=== PATIENT | male | born 1985 | race Caucasian/White ===

== ENCOUNTER 2023-09-16 15:54 | Emergency (ER) | payer OTHER, SELFPAY ==
[2023-09-16 16:12] VITALS: BP 159/90
[2023-09-16] MEDS: OCUFLOX 2 DROP OPHTH (17:38)
--- NOTE | 2023-09-16 20:50 | ED.GENMED ---
History of Present Illness
General
Chief Complaint: Eye Problems
Source: patient
Exam Limitations: none
Time Seen by Provider: 09/16/23 16:39
Nursing documentation reviewed up to this point in time: agreed with
Travel History
Have you had any contact with someone who has COVID-19?: No
Do you have any symptoms of coronavirus? Fever > 100 degrees, chills, cough, shortness of breath, sore throat, loss of taste or smell, muscle aches, or headache?: No
History of Present Illness
History of Present Illness:
Patient to ED for eval of swelling to right upper eyelid. Symptoms started 1 week ago and continues to worsen. Denies fever/chills. No historyo f trauma. Seen by PCP [employer]. Given rx for doxycycline and sent to ED for eval.
Past History
Past History
ED Past Medical History: None and Other (Previous alcohol use)
ED Past Surgical History: None
Social History
Tobacco: Non-smoker
Alcohol: Binge drinker
Family History
Family History: Other (Alzheimer's)
Review of Systems
Review of Systems
Allergies reviewed?: Yes
All Other Systems: ROS reviewed and negative except as documented in HPI and ROS
Constitutional: Reports no symptoms
EENT: Reports other (Large hordeolum right upper eyelid)
Musculoskeletal: Reports no symptoms
Skin: Reports other (swelling right upper eyelid)
Neurological: Reports no symptoms
Psychiatric: Reports no symptoms
Phy Exam
General Physical Exam
General Presentation: well appearing and no apparent distress
General age: appears stated age
General Skin: warm and dry
General Habitus: normal
General Mental: alert
Eye Exam
Eye Exam: PERRL, EOMI, globe normal and other (Right conjunctival injection, no discharge. States he irritated eye by tryng to remove contact lens. Large draining hordeolum on rightupper lateral lid. No evidence of periorbital cellulitis or
abscess.)
Eye Exam General: PERRL: bilateral and EOM intact: bilateral
Conjunctival Changes: right: watery discharge
Eyelid Exam: sty-hordeolum: Right (Right upper lateral lid large hordeolum, beginning to drain)
Type of Exam: simple and fluorescein
Musculoskeletal Exam
Musculoskeletal Exam: full ROM and neuro vasc intact
Skin Exam
Skin Exam: normal color and warm/dry
Psychiatric Exam
Psychiatric Exam: normal mood/affect
Course
Orders/Labs/Results
Orders:
Orders
09/16/23 17:13
Fluorescein Sodium [Ful-Justyna] 1 mg .ROUTE .STK-MED ONE
Tetracaine HCl [Tetracaine 0.5% Ophthalmic Solution] 1 drop .ROUTE .STK-MED ONE
09/16/23 17:22
Ofloxacin [Ocuflox] See Dose Instructions OPHTH NOW STA
Vital Signs
Initial and Last Documented VS:
Initial Vital Signs
Temp Pulse Resp BP Pulse Ox
98.7 F 92 18 159/90 99
09/16/23 16:12 09/16/23 16:12 09/16/23 16:12 09/16/23 16:12 09/16/23 16:12
Last Documented Vital Signs
Temp Pulse Resp BP Pulse Ox
98.7 F 92 18 159/90 99
09/16/23 16:12 09/16/23 16:12 09/16/23 16:12 09/16/23 16:12 09/16/23 16:12
*Critical Care Note
Total Time (30-74mins, 75-104mins- exclusive of procedures): Not Applicable
Update Note
Update Note:
Right eye conjunctval injecton for irritation of repeatedly attempting to remove his contact lens. Given tobramycin eye drops to cover potential conjunctivits due to repeated trauma of searching for lens that was not in eye. He is discharged homoe
and will followup with ophthalmology in AM
ED Attending Note
-
Portions of this chart may have been created with voice recognition software.� Occasional wrong word or��sound alike� substitutions may have occurred due to the inherent limitations of voice recognition software.
Discharge Plan
Departure
Patient Disposition: Home (Routine Discharge)
Date of Disposition: 09/16/23
Time of Disposition: 17:22
Patient with high blood pressure during this ER visit?: No
Condition: Good
Covid-19: Not Applicable
Discharge Problem:
External hordeolum
Instructions: Stye (hordeolum), How to Use Eye Drops
Prescriptions:
New
ofloxacin [Ocuflox] 0.3 % drops
1 drp ophthalmic (eye) QID Qty: 5 0RF
No Action
alprazolam 1 MG tablet
2 mg PO HS
zolpidem 5 MG tablet
5 mg PO HS
Referrals:
Jovita Lind MD [Active] - Tomorrow
Interventions
Interventions:
*Risk Screen - Suicide Last Done: 09/16/23 16:44
*General Assessment Last Done: 09/16/23 17:44
*Neglect/Abuse Screening Last Done: 09/16/23 16:44
ED- Fall Risk Assessment Last Done: 09/16/23 17:49
*ED COVID-19 Vaccine History Last Done: 09/16/23 17:44
*Nursing Disposition Last Done: 09/16/23 17:49
Discharge Date and Time
Discharge Date/Time: 09/16/23 17:50
Print Language: BULGARIAN
== END 2023-09-16 17:50 | disposition home or self-care (01) ==
LOC: EMR 15:54
PROVIDERS: EMERGENCY PHYSICIAN Emergency Medicine; FAMILY PHYSICIAN Internal Medicine
DX: H00.011 Hordeolum externum right upper eyelid (principal)
CPT/HCPCS: 99283